=== PATIENT | female | born 1980 | race Caucasian/White ===

== ENCOUNTER 2017-06-23 19:20 | Emergency (ER) | payer OTHER ==
[2017-06-23 20:59] VITALS: BP 104/71
--- NOTE | 2017-06-23 21:19 | UC ---
Lower Extremity/Ankle HPI - HPI Summary HPI Summary: c/o gradual onset of left heel pain. Pt states pain radiates from left heel " up ankle" denies injury, infection or prior surgery. Pt states pain is worse with weight bearing - History of Current Complaint Chief Complaint: UCLowerExtremity Stated Complaint: LEFT HEEL PAIN Time Seen by Provider: 06/23/17 21:11 Hx Obtained From: Patient Hx Last Menstrual Period: 06/05/17 ?: No Onset/Duration: Gradual Onset, Lasting Days, Still Present Severity Initially: Mild Severity Currently: Moderate - with weight bearing Pain Intensity: 5 Aggravating Factor(s): Standing, Ambulation Alleviating Factor(s): Rest, Elevation Able to Bear Weight: Yes - Risk Factors Gout Risk Factors: Negative DVT Risk Factors: Negative Septic Arthritis Risk Factor: Negative - Allergies/Home Medications Allergies/Adverse Reactions: Allergies Allergy/AdvReac Type Severity Reaction Status Date / Time Copper Sulfate Allergy Blisters Verified 06/23/17 20:59 [From Copper Trace Metal Additive] Benzonatate [From Tessalon] AdvReac Intermediate FELT Verified 06/23/17 20:59 DISORIENTED AND FOGGY all metals Allergy Blisters Uncoded 06/23/17 20:59 Home Medications: Home Medications Ibuprofen TAB* [Advil TAB*] 600 mg PO Q6H PRN 06/23/17 [History Confirmed ] Oxycodone W/ Acetaminophen [Percocet 7.5-325 mg (NF)] 1 tab PO TID 06/23/17 [ History Confirmed 06/23/17] PMH/Surg Hx/FS Hx/Imm Hx Previously Healthy: Yes - Surgical History Surgical History: Yes Surgery Procedure, Year, and Place: 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 on 11/22/13. APPY. FIBROID SX. D&C - Family History Known Family History: Positive: Hypertension - Social History Occupation: Employed Full-time Lives: With Family Alcohol Use: Rare Substance Use Type: Excessive Caffeine Smoking Status (MU): Light Every Day Tobacco Smoker Type: Cigarettes Amount Used/How Often: 1/4 ppd Length of Time of Smoking/Using Tobacco: 20 YRS. Have You Smoked in the Last Year: Yes Household Exposure Type: Cigarettes - Immunization History Most Recent Influenza Vaccination: Not indicated Most Recent Tetanus Shot: Unknown Most Recent Pneumonia Vaccination: Not indicated Review of Systems Constitutional: Negative Skin: Negative Eyes: Negative ENT: Negative Respiratory: Negative Cardiovascular: Negative Gastrointestinal: Negative Genitourinary: Negative Motor: Negative Neurovascular: Negative Musculoskeletal: Arthralgia - left heel, Myalgia - left heel/ankle Neurological: Negative Psychological: Negative Is Patient Immunocompromised?: No All Other Systems Reviewed And Are Negative: Yes Physical Exam Triage Information Reviewed: Yes Appearance: Well-Appearing Vital Signs: Initial Vital Signs Temp 98.4 F 06/23/17 20:51 Pulse 85 06/23/17 20:51 Resp 16 06/23/17 20:51 BP 104/71 06/23/17 20:51 Pulse Ox 100 06/23/17 20:51 Vital Signs Reviewed: Yes Eye Exam: Normal ENT Exam: Normal Dental Exam: Normal Neck exam: Normal Respiratory: Positive: No respiratory distress Musculoskeletal Exam: Other Musculoskeletal: Positive: Other: - point tenderness left heel with palpation, that radiates with palpation Neurological Exam: Normal Psychological Exam: Normal Skin Exam: Normal Lower Extremity Course/Dx - Differential Dx/Diagnosis Differential Diagnosis/HQI/PQRI: Gout, Osteomyelitis, Other - heel spur Provider Diagnoses: heel spur left heel Discharge - Discharge Plan Condition: Stable Disposition: HOME Patient Education Materials: Heel Spur (ED) Referrals: Romaine Wilson MD [Primary Care Provider] - If Needed Shayan Palacio MD [Medical Doctor] - If Needed
== END 2017-06-23 21:30 | disposition home or self-care (01) ==
LOC: UCCORT 19:20
DX: M77.32 Calcaneal spur, left foot (principal); F17.210 Nicotine dependence, cigarettes, uncomplicated
CPT/HCPCS: 99212; G0463

== ENCOUNTER 2017-09-16 15:08 | Emergency (ER) | payer SELFPAY ==
[2017-09-16 15:52] VITALS: BP 123/71
--- NOTE | 2017-09-16 15:54 | UC ---
Skin Complaint HPI - HPI Summary HPI Summary: Pt c/o right heel pain and calloused area that began 1 year ago and has worsened over the last few weeks and is now painful to walk on. - History of Current Complaint Hx Obtained From: Patient Hx Last Menstrual Period: 08/30/17 ?: No Onset/Duration: Gradual Onset, Lasting Weeks, Worse Since - onset Skin Exposure Onset/Duration: Weeks Ago Timing: Constant Onset Severity: Mild Current Severity: Moderate Pain Intensity: 8 Location: Discrete, Foot (Right) Character: Pain, Raised Aggravating Factor(s): Touch Alleviating Factor(s): Unknown Associated Signs & Symptoms: Positive: Tenderness <Freida Michaud NP - Last Filed: 09/16/17 16:02> <Omayra Ruiz - Last Filed: 09/16/17 21:49> - History of Current Complaint Time Seen by Provider: 09/16/17 15:32 Stated Complaint: PAINFUL RIGHT HEEL/FOOT - Allergy/Home Medications Allergies/Adverse Reactions: Allergies Allergy/AdvReac Type Severity Reaction Status Date / Time benzonatate Allergy Numbness Verified 09/16/17 15:38 copper Allergy Blisters Verified 09/16/17 15:38 all metals Allergy Blisters Uncoded 06/23/17 20:59 Review of Systems Constitutional: Negative Skin: Other - thickened skin right heel Eyes: Negative ENT: Negative Respiratory: Negative Cardiovascular: Negative Gastrointestinal: Negative Genitourinary: Negative Motor: Negative Neurovascular: Negative Musculoskeletal: Negative Neurological: Negative Psychological: Negative Is Patient Immunocompromised?: No All Other Systems Reviewed And Are Negative: Yes <Freida Michaud NP - Last Filed: 09/16/17 16:02> PMH/Surg Hx/FS Hx/Imm Hx Previously Healthy: Yes - has hx squamous cell CA - Surgical History Surgical History: Yes Surgery Procedure, Year, and Place: 17 surgeries for squamous cell carcinoma, last surgery 10/2015 for rectal , vaginal, vulvar,. on 11/22/13. APPY. FIBROID SX. D&C - Family History Known Family History: Positive: Hypertension - Social History Occupation: Works From/At Home Lives: With Family Alcohol Use: Rare Substance Use Type: None Smoking Status (MU): Light Every Day Tobacco Smoker Type: Cigarettes Amount Used/How Often: 2 CIG A DAY Length of Time of Smoking/Using Tobacco: 20 YRS. Have You Smoked in the Last Year: Yes Household Exposure Type: Cigarettes - Immunization History Most Recent Influenza Vaccination: Not indicated Most Recent Tetanus Shot: Unknown Most Recent Pneumonia Vaccination: Not indicated <Freida Michaud NP - Last Filed: 09/16/17 16:02> Physical Exam Triage Information Reviewed: Yes Appearance: Well-Appearing Vital Signs: Initial Vital Signs Temp 98.0 F 09/16/17 15:35 Pulse 91 09/16/17 15:35 Resp 16 09/16/17 15:35 BP 123/71 09/16/17 15:35 Pulse Ox 98 09/16/17 15:35 Vital Signs Reviewed: Yes Eye Exam: Normal ENT: Positive: Hearing grossly normal Respiratory: Positive: No respiratory distress Musculoskeletal Exam: Normal Neurological Exam: Normal Psychological Exam: Normal Skin Exam: Other - quarter size wart right heel <Freida Michaud NP - Last Filed: 09/16/17 16:02> Vital Signs: Initial Vital Signs Temp 98.0 F 09/16/17 15:35 Pulse 91 09/16/17 15:35 Resp 16 09/16/17 15:35 BP 123/71 09/16/17 15:35 Pulse Ox 98 09/16/17 15:35 <Omayra Ruiz - Last Filed: 09/16/17 21:49> Course/Dx - Differential Diagnoses - Skin Complaint Differential Diagnoses: Other - plantars wart, squamous cell carcinoma - Diagnoses Provider Diagnoses: plantars wart <Freida Michaud NP - Last Filed: 09/16/17 16:02> Discharge - Sign-Out/Discharge Documenting (check all that apply): Discharge - Billing Disposition and Condition Condition: STABLE Disposition: HOME <Freida Michaud NP - Last Filed: 09/16/17 16:02> - Billing Disposition and Condition Condition: STABLE Disposition: HOME <Omayra Ruiz - Last Filed: 09/16/17 21:49> - Discharge Plan Condition: Stable Disposition: HOME Patient Education Materials: Plantar Wart (ED) Referrals: Catalino Licea DPM [Doctor of Podiatric Medicine] - Romaine Wilson MD [Primary Care Provider] - If Needed Shekhar Liu DPM [Doctor of Podiatric Medicine] - Jaime Watson DPM [Doctor of Podiatric Medicine] - Additional Instructions: Please follow up with your PCP or return to clinic as needed. Please note we have provided a short list of podiatry care providers for you to follow up with as needed.
== END 2017-09-16 16:03 | disposition home or self-care (01) ==
LOC: UCCORT 15:08
DX: B07.0 Plantar wart (principal); F17.210 Nicotine dependence, cigarettes, uncomplicated
CPT/HCPCS: 99211; G0463

== ENCOUNTER 2017-11-02 08:44 | Emergency (ER) | payer MEDICAID ==
[2017-11-02 09:07] VITALS: BP 117/75
--- NOTE | 2017-11-02 09:36 | ED ---
Throat Pain/Nasal Congestion - HPI Summary HPI Summary: 37 yr old female with runny nose, coughing, sinus pressure, post nasal drip. Onset about a week ago. Several ill exposures in the family with similar symptoms. THe patient has sinus pressure and discomfort as well. She states she had lazer surgery and excision of squamous cell genital, anal area last month. She states she has had a temp of 101 at home. Denies SOB. She has chest tightness with coughing episodes. She is cutting back on smoking. - History of Current Complaint Chief Complaint: UCRespiratory Time Seen by Provider: 11/02/17 09:13 - Allergies/Home Medications Allergies/Adverse Reactions: Allergies Allergy/AdvReac Type Severity Reaction Status Date / Time benzonatate Allergy Numbness Verified 11/02/17 09:08 copper Allergy Blisters Verified 11/02/17 09:08 all metals Allergy Blisters Uncoded 11/02/17 09:08 Home Medications: Home Medications Dextromethorphan/Benzocaine [Cepacol Sorethroat-Cough Kun] 1 each PO BEDTIME PRN 11/02/17 [History Confirmed 11/02/17] Phenylephrine/Dm/Acetaminop/GG [Mucinex Fast-Max Cold Flu] 1 liq PO Q6H PRN 12/13 [History Confirmed 11/02/17] PMH/Surg Hx/FS Hx/Imm Hx Endocrine/Hematology History: Denies: Hx Diabetes Cardiovascular History: Denies: Hx Congestive Heart Failure, Hx Hypertension, Hx Pacemaker/ICD History: Denies: Hx Dialysis, Hx Renal Disease Musculoskeletal History: Reports: Other Musculoskeletal History - joint pain current Sensory History: Reports: Hx Contacts or Glasses Denies: Hx Hearing Aid Opthamlomology History: Reports: Hx Contacts or Glasses Psychiatric History: Denies: Hx Panic Disorder - Cancer History Cancer Type, Location and Year: squamous cell - Surgical History Surgery Procedure, Year, and Place: 17 surgeries for squamous cell carcinoma, last surgery 10/2015 for rectal , vaginal, vulvar; plus surgery vaginal vulvo- rectal 09/27/17 [place];. on 11/22/13;. APPY and uterine tumor 2013. FIBROID SX. D&C Infectious Disease History: Yes Infectious Disease History: Reports: Hx Shingles - 2007 Denies: Hx Clostridium Difficile, Traveled Outside the [place] in Last 30 Days - Family History Known Family History: Positive: Hypertension - Social History Alcohol Use: Rare Substance Use Type: Reports: None Smoking Status (MU): Light Every Day Tobacco Smoker Type: Cigarettes Amount Used/How Often: 2 CIG A DAY Length of Time of Smoking/Using Tobacco: 20 YRS. Have You Smoked in the Last Year: Yes Review of Systems Positive: Fever, Chills Positive: Sore Throat, Nasal Discharge Positive: Cough All Other Systems Reviewed And Are Negative: Yes Physical Exam Triage Information Reviewed: Yes Vital Signs On Initial Exam: Initial Vitals Temp Pulse Resp BP Pulse Ox 98.8 F 85 18 117/75 96 11/02/17 08:55 11/02/17 08:55 11/02/17 08:55 11/02/17 08:55 11/02/17 08:55 Vital Signs Reviewed: Yes Appearance: Positive: Well-Appearing, No Pain Distress Skin: Positive: Warm, Skin Color Reflects Adequate Perfusion Head/Face: Positive: Normal Head/Face Inspection Eyes: Positive: EOMI ENT: Positive: Pharyngeal erythema, TMs normal, Sinus tenderness. Negative: Muffled voice, Hoarse voice Neck: Positive: Nontender Respiratory/Lung Sounds: Positive: Clear to Auscultation, Breath Sounds Present Cardiovascular: Positive: RRR. Negative: Murmur Abdomen Description: Positive: Nontender Musculoskeletal: Positive: Strength/ROM Intact Neurological: Positive: Sensory/Motor Intact, Alert, Oriented to Person Place, Time, CN Intact II-III Psychiatric: Positive: Normal - Nayely Coma Scale Best Eye Response: 4 - Spontaneous Best Motor Response: 6 - Obeys Commands Best Verbal Response: 5 - Oriented Coma Scale Total: 15 Diagnostics - Vital Signs Vital Signs Temp Pulse Resp BP Pulse Ox 11/02/17 08:55 98.8 F 85 18 117/75 96 - Laboratory Lab Statement: Any lab studies that have been ordered have been reviewed, and results considered in the medical decision making process. EENT Course/Dx - Course Course Of Treatment: 37 yr old with sinusitis, and asthmatic bronchitis. Rx with Augmentin. Pred, and albuterol. DChome FU with PMD. - Diagnoses Provider Diagnoses: Sinusitis, Acute asthmatic bronchitis Discharge - Sign-Out/Discharge Documenting (check all that apply): Discharge/Admit/Transfer - Discharge Plan Condition: Good Disposition: HOME Prescriptions: Albuterol HFA INHALER* [Ventolin HFA Inhaler*] 1 - 2 puff INH Q4H PRN #1 mdi PRN Reason: Cough Amoxicillin/Clavulanate TAB* [Augmentin TAB 875*] 875 mg PO BID #20 tab predniSONE TAB* [Deltasone 20 MG TAB*] 40 mg PO DAILY #8 tab Patient Education Materials: Sinusitis (ED), Bronchospasm (ED) Referrals: Romaine Wilson MD [Primary Care Provider] - 2 Days - Billing Disposition and Condition Condition: GOOD Disposition: Home
== END 2017-11-02 09:40 | disposition home or self-care (01) ==
LOC: UCCORT 08:44
DX: J32.9 Chronic sinusitis, unspecified (principal); J45.909 Unspecified asthma, uncomplicated; Z91.09 Other allergy status, other than to drugs and biological substances; Z88.8 Allergy status to other drugs, medicaments and biological substances
CPT/HCPCS: 99212; G0463

== ENCOUNTER 2018-06-25 12:20 | Emergency (ER) | payer OTHER ==
[2018-06-25 13:03] VITALS: BP 116/70
--- NOTE | 2018-06-25 13:27 | UC ---
Throat Pain/Nasal Nick HPI - History of Current Complaint Chief Complaint: UCGeneralIllness Stated Complaint: CONGESTION,COUGH Time Seen by Provider: 06/25/18 13:00 Hx Obtained From: Patient Hx Last Menstrual Period: 06/18/18 ?: No Onset/Duration: Gradual Onset, Lasting Weeks, Still Present - no improvement x weeks Severity: Mild Pain Intensity: 0 Pain Scale Used: 0-10 Numeric Associated Signs & Symptoms: Positive: Hoarseness, Sinus Discomfort Related History: Smoking - Allergies/Home Medications Allergies/Adverse Reactions: Allergies Allergy/AdvReac Type Severity Reaction Status Date / Time benzonatate Allergy Numbness Verified 06/25/18 12:59 copper Allergy Blisters Verified 06/25/18 12:59 all metals Allergy Blisters Uncoded 06/25/18 12:59 Home Medications: Home Medications D-Methorphan/PE/Acetaminophen [Daytime Cold-Flu Relief Sftgl] 1 each PO ONCE PRN 06/25/18 [History Confirmed 06/25/18] PMH/Surg Hx/FS Hx/Imm Hx Previously Healthy: Yes - Surgical History Surgical History: Yes Surgery Procedure, Year, and Place: 17 surgeries for squamous cell carcinoma, last surgery 10/2015 for rectal , vaginal, vulvar; plus surgery vaginal vulvo- rectal 09/27/17 [place];. on 11/22/13;. APPY and uterine tumor 2013. FIBROID SX. D&C - Family History Known Family History: Positive: Hypertension - Social History Alcohol Use: Rare Substance Use Type: None Smoking Status (MU): Light Every Day Tobacco Smoker Type: Cigarettes Amount Used/How Often: 2 CIG A DAY Length of Time of Smoking/Using Tobacco: 20 YRS. Have You Smoked in the Last Year: Yes Household Exposure Type: Cigarettes - Immunization History Most Recent Influenza Vaccination: Not indicated Most Recent Tetanus Shot: Unknown Most Recent Pneumonia Vaccination: Not indicated Review of Systems All Other Systems Reviewed And Are Negative: Yes Constitutional: Positive: Fever - 101.9 Monday evening, Fatigue ENT: Positive: Nasal Discharge, Sinus Congestion, Sinus Pain/Tenderness Respiratory: Positive: Cough Is Patient Immunocompromised?: No Physical Exam Triage Information Reviewed: Yes Appearance: No Pain Distress, Well-Nourished, Ill-Appearing - minimal Vital Signs: Initial Vital Signs Temp 97.1 F 01/28/19 13:01 Pulse 85 06/25/18 13:01 Resp 20 06/25/18 13:01 BP 116/70 06/25/18 13:01 Pulse Ox 99 06/25/18 13:01 Eyes: Positive: Conjunctiva Clear ENT: Positive: Hearing grossly normal, Pharyngeal erythema - mild b/l, no exudates, Nasal congestion, TMs normal, Sinus tenderness - b/l frontal/ max, Uvula midline. Negative: Tonsillar swelling, Tonsillar exudate Neck: Positive: Supple, Nontender, Enlarged Nodes @ - b/l R>L LAD Psychological Exam: Normal Skin Exam: Normal Throat Pain/Nasal Course/Dx - Course Course Of Treatment: sinusitis, abx given, OTCs for symptoms. FOllow up with primary within 2-3 days for re-eval - Differential Dx/Diagnosis Differential Diagnosis/HQI/PQRI: Pharyngitis, Sinusitis, URI Provider Diagnosis: Sinusitis Discharge - Sign-Out/Discharge Documenting (check all that apply): Patient Departure All imaging exams completed and their final reports reviewed: No Studies - Discharge Plan Condition: Good Disposition: HOME Prescriptions: Azithromyxin RONNIE (NF) [Z-Ronnie (Zithromax) 250 mg tabs #6] 2 tab PO .TODAY, THEN 1 DAILY #6 tab Patient Education Materials: Sinusitis (ED) Referrals: Romaine Wilson MD [Primary Care Provider] - Additional Instructions: - Increase fluid intake - Antibiotics as directed - Tylenol/ Motrin as needed for pain - Over the counter medication as needed for symptoms - Go to ER with shortness of breath, chest pain, increased pain, fever > 102. - Billing Disposition and Condition Condition: GOOD Disposition: Home
== END 2018-06-25 13:34 | disposition home or self-care (01) ==
LOC: UCCORT 12:20
DX: J32.9 Chronic sinusitis, unspecified (principal); F17.210 Nicotine dependence, cigarettes, uncomplicated; J39.2 Other diseases of pharynx; Z91.09 Other allergy status, other than to drugs and biological substances
CPT/HCPCS: 99212; G0463

== ENCOUNTER 2019-03-21 19:16 | Emergency (ER) | payer OTHER ==
[2019-03-21 19:37] VITALS: BP 119/83
--- NOTE | 2019-03-21 20:15 | UC ---
Upper Extremity HPI - HPI Summary HPI Summary: Pt presents with c/o sudden onset of right wrist pain, tingling and numbness in distal finger tips of fingers 2-4. Pt denies recent injury. 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 - History of Current Complaint Chief Complaint: UCUpperExtremity Stated Complaint: RIGHT HAND/WRIST PAIN Time Seen by Provider: 03/21/19 20:04 Hx Obtained From: Patient Hx Last Menstrual Period: due any day ?: No Onset/Duration: Gradual Onset, Lasting Days, Still Present Severity Initially: Mild Severity Currently: Moderate Pain Intensity: 6 Location Of Pain: Is Discrete @ - right wrist Character: Dull, Aching Aggravating Factor(s): Movement Alleviating Factor(s): Rest Associated Signs And Symptoms: Positive: Numbness/Tingling Related History: Dominant Hand Right - Risk Factors Non-Orthopedic Risk Factor: Negative DVT Risk Factors: Negative Septic Arthritis Risk Factor: Negative Compartment Syndrome Risk Factors: Pain - Allergies/Home Medications Allergies/Adverse Reactions: Allergies Allergy/AdvReac Type Severity Reaction Status Date / Time benzonatate Allergy Numbness Verified 06/25/18 12:59 all metals Allergy Blisters Uncoded 06/25/18 12:59 Home Medications: Home Medications Oxycodone HCl/Acetaminophen [Percocet] 1 tab PO TID 03/21/19 [History Confirmed 03/21/19] PMH/Surg Hx/FS Hx/Imm Hx Previously Healthy: Yes - Surgical History Surgical History: Yes Surgery Procedure, Year, and Place: 17 surgeries for squamous cell carcinoma, last surgery 10/2015 for rectal , vaginal, vulvar; plus surgery vaginal vulvo- rectal 09/27/17 [place];. on 11/22/13;. APPY and uterine tumor 2013. FIBROID SX. D&C - Family History Known Family History: Positive: Hypertension - Social History Occupation: Employed Full-time Lives: With Family Alcohol Use: None Substance Use Type: None Smoking Status (MU): Light Every Day Tobacco Smoker Type: Cigarettes Amount Used/How Often: 1/4 ppd Length of Time of Smoking/Using Tobacco: 20 YRS. Have You Smoked in the Last Year: Yes Household Exposure Type: Cigarettes - Immunization History Most Recent Influenza Vaccination: Not indicated Most Recent Tetanus Shot: Unknown Most Recent Pneumonia Vaccination: Not indicated Review of Systems All Other Systems Reviewed And Are Negative: Yes Constitutional: Positive: Negative Skin: Positive: Negative Eyes: Positive: Negative ENT: Positive: Negative Respiratory: Positive: Negative Cardiovascular: Positive: Negative Gastrointestinal: Positive: Negative Genitourinary: Positive: Negative Motor: Positive: Negative Neurovascular: Positive: Negative Musculoskeletal: Positive: Arthralgia - right wrist Neurological: Positive: Negative Psychological: Positive: Negative Is Patient Immunocompromised?: No Physical Exam Triage Information Reviewed: Yes Appearance: Well-Appearing Vital Signs: Initial Vital Signs Temp 99.6 F 03/21/19 19:30 Pulse 81 03/21/19 19:30 Resp 18 03/21/19 19:30 BP 119/83 03/21/19 19:30 Pulse Ox 99 03/21/19 19:30 Vital Signs Reviewed: Yes Eye Exam: Normal ENT: Positive: Hearing grossly normal Neck exam: Normal Respiratory: Positive: No respiratory distress Musculoskeletal: Positive: Other: - c/o pain with Phalen's test. Neurological Exam: Normal Psychological Exam: Normal Skin Exam: Normal Upper Extremity Course/Dx - Differential Dx/Diagnosis Differential Diagnosis/HQI/PQRI: Arthritis, Strain Provider Diagnosis: Right wrist pain Discharge ED - Sign-Out/Discharge Documenting (check all that apply): Patient Departure All imaging exams completed and their final reports reviewed: No Studies - Discharge Plan Condition: Stable Disposition: HOME Patient Education Materials: Arthralgia (ED) Referrals: Romaine Wilson MD [Primary Care Provider] - If Needed Cuong Patel MD [Medical Doctor] - As Soon As Possible Chiqui Mckeon MD [Medical Doctor] - As Soon As Possible - Billing Disposition and Condition Condition: STABLE Disposition: Home
== END 2019-03-21 20:29 | disposition home or self-care (01) ==
LOC: UCCORT 19:16
DX: M25.531 Pain in right wrist (principal); R20.0 Anesthesia of skin; F17.210 Nicotine dependence, cigarettes, uncomplicated; Z88.8 Allergy status to other drugs, medicaments and biological substances; Z91.09 Other allergy status, other than to drugs and biological substances
CPT/HCPCS: 99211; G0463

== ENCOUNTER 2019-06-25 13:22 | Emergency (ER) | payer OTHER ==
--- OUTSIDE RECORDS SUMMARY | 2019-06-25 14:03 | XMS REPORT | Summary of Care ---
:1980 Author Organization [facility] Address [address] [place] [address] Care Team Providers Name Role Phone Romaine Wilson MD Primary Care Provider Encounter Details Date Type Department Care Team Description 05/13/2019 Hospital Encounter [facility] Pathology Vulvar dysplasia; Laboratory and PSC at Pre-op testing [facility] [place] [address] Allergies No Known Allergiesdocumented as of this encounter (statuses as of 05/14/2019) Medications Medication Sig Dispensed Refills Start Date End Date Status ibuprofen Take 600 mg by 0 Active (ADVIL,MOTRIN) 600 MG mouth every 6 tablet (six) hours as needed for Pain. 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 documented as of this encounter (statuses as of 05/14/2019) Social History Tobacco Use Types Packs/Day Years Used Date Current Every Day Smoker 0.25 21 Smokeless Tobacco: Never Used Alcohol Use Drinks/Week oz/Week Comments No Sex Assigned at Date Recorded Not on file Job Start Date Occupation Industry Not on file Not on file Not on file Travel History Travel Start Travel End No recent travel history available. documented as of this encounter Last Filed Vital Signs Not on filedocumented in this encounter Plan of Treatment Date Type Specialty Care Team Description 06/24/2019 Office Visit Obstetrics and Gynecology Teresita Brooke MD [address] [facility] [address] [place] [address] [phone] Health Maintenance Due Date Last Done Comments MMR Vaccines (1 of 1 - Standard 1980 series) Varicella Vaccines (1 of 2 - 1980 2-dose childhood series) Pneumococcal Vaccine: Pediatrics 1985 (0 to 5 Years) and At-Risk Patients (6 to 64 Years) (1 of 1 - PPSV23) DTaP,Tdap,and Td Vaccines (1 - 1986 Tdap) HIV Screening 1992 Influenza Vaccine 02/26/2019 Cervical Cancer Screening 5 years 06/11/2019 06/11/2014 Pneumococcal Vaccine: 65+ Years (1 2044 of 2 - PCV13) HIB Vaccines Aged Out No longer eligible based on patient's age to complete this topic Hepatitis A Vaccines Aged Out No longer eligible based on patient's age to complete this topic Hepatitis B Vaccines Aged Out No longer eligible based on patient's age to complete this topic IPV Vaccines Aged Out No longer eligible based on patient's age to complete this topic documented as of this encounter Procedures Procedure Name Priority Date/Time Associated Comments Diagnosis CBC AND DIFFERENTIAL Routine 05/13/2019 10:08 Vulvar dysplasia Results for this AM EST Pre-op testing procedure are in the results section. BASIC METABOLIC PANEL Routine 05/13/2019 10:08 Vulvar dysplasia Results for this AM EST Pre-op testing procedure are in the results section. documented in this encounter Results CBC and Differential (05/13/2019 10:08 AM EST) White Blood Cell 9.2 4 - 10 [facility] 10*3/uL [facility] Pathology Red Blood Cell 5.00 4.1 - 5.3 [facility] 10*6/uL [facility]ology Hemoglobin 15.0 11.5 - 15.5 [facility] g/dL [facility] Clin Pathology Hematocrit 43.8 36 - 45 % [facility] Clin Pathology Mean Cell Volume 87.6 80 - 96 fL [facility] Clin Pathology Mean Cell Hemoglobin 30.0 27 - 33 pg [facility] Clin Pathology Mean Cell Hgb Conc 34.2 32.0 - 36.0 [facility] g/dL Univ Clin Pathology Red Cell Dist Width 12.6 11.5 - 14.5 % [facility] Clin Pathology Platelet Count 269 150 - 400 [facility] 10*3/uL [facility] Clin Pathology Differential Type Automated Diff [facility] Clin Pathology Neutrophil 64 % [facility] Clin Pathology Lymphocyte 27 % [facility] Clin Pathology Monocyte 7 % [facility] Clin Pathology Eosinophil 1 % [facility] Univ Clin Pathology Basophil 1 % [facility] Clin Pathology Abs Neutrophil 6.02 1.8 - 7.0 [facility] 10*3/uL Univ Clin Pathology Abs Lymphocyte 2.48 1.2 - 4.0 [facility] 10*3/uL [facility] Clin Pathology Abs Monocyte 0.62 0 - 0.8 [facility] 10*3/uL [facility] Clin Pathology Abs Eosinophil 0.05 0 - 0.5 [facility] 10*3/uL [facility] Clin Pathology Abs Basophil 0.04 0 - 0.2 [facility] 10*3/uL Univ Clin Pathology Nucleated Red Blood 0 0 - 0 [facility] Cells /100{WBCs} [facility] Clin Pathology Specimen EDTA Whole Blood Performing Organization Address City/State/[place] Phone Number [facility] PATH[facility] [address] [place] [address] [facility] Clin [address] [place] [address] Pathology Basic Metabolic Panel (05/13/2019 10:08 AM EST) Bicarbonate 23 22 - 29 mmol/L [facility] Clin Pathology Chloride 104 98 - 107 mmol/L [facility] Clin Pathology Creatinine 0.78 0.50 - 0.90 [facility] mg/dL Univ Clin Pathology Glucose 91 70 - 140 mg/dL [facility] Clin Pathology Potassium 3.9 3.4 - 5.1 mmol/L [facility] Clin Pathology Sodium 138 136 - 145 mmol/L [facility] Clin Pathology Blood Urea Nitrogen 10 6 - 20 mg/dL [facility] Clin Pathology Anion Gap 11 8 - 15 mmol/L [facility] Clin Pathology Osmolality, Marcello 284 275 - 300 [facility] mosm/kg [facility] Clin Pathology BUN/Cre Ratio 13 [facility] Clin Pathology Calcium 9.4 8.6 - 10.0 mg/dL [facility] Clin Pathology GFR Non >90 >60 [facility] Welsh 2009 CDK-EPI mL/min/1.73m2 [facility]ology GFR >90 >60 [facility] 2009 CKD-EPI mL/min/1.73m2 [facility] Pathology Specimen Plasma Performing Organization Address City/State/[facility] Phone Number [facility] [address] [place] [address] [facility] Clin [address] [place] [address] Pathology documented in this encounter Visit Diagnoses Diagnosis Vulvar dysplasia Other specified noninflammatory disorder of vulva and perineum Pre-op testing Preoperative examination, unspecified documented in this encounter
--- OUTSIDE RECORDS SUMMARY | 2019-06-25 14:03 | XMS REPORT | Summary of Care ---
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 Aston Byrd MD Pre-op testing; [address] JAKY II (vulvar intraepithelial neoplasia II) [address] [place] [phone] Allergies No Known Allergiesdocumented as of this [...] of this encounter Last Filed Vital Signs Vital Sign Reading Time Taken Comments Blood Pressure 138/88 05/13/2019 9:39 AM EST Pulse - - Temperature - - Respiratory Rate - - Oxygen Saturation - - Inhaled Oxygen Concentration - - Weight 100.7 kg (222 lb) 05/13/2019 9:39 AM EST Height 170.2 cm (5' 7") 05/13/2019 9:39 AM EST Body Mass Index 34.77 05/13/2019 9:39 AM EST documented in this encounter Progress Notes Teresita Brooke MD - 05/13/2019 9:30 AM EST CC: followup visit HPI: 39 y.o. here for a follow up visit, states she feels the lesion is back. She ahs itching and feeling of a "bump" on her perineum, similar to other recurrences of the vulvar dysplasia. She otherwise feels well overall, no pain/ nausea/ vomiting/ bleeding/ bloating / fever/ chills. 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 Past Surgical History: Procedure Laterality Date APPENDECTOMY 01/03/2014 SECTION 11/22/13 twins CYSTECTOMY Left 2007 left ovary DILATION AND CURETTAGE OF UTERUS extensive genital lesions 02/17/14 genital condylomata at the clitoris,right labia and perianal area fibroid removed 01/03/2014 same time as appendectomy ORAL PROCEDURES teeth removed, gum tumor removed 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 No BMI 34.77 kg/m Skin: clear Affect/Neuro: alert, awake, oriented HEENT: MMM, pharynx clear Neck: supple without thyromegaly, no cervical or supraclavicular adenopathy Lungs: CTAB, no wheezing Back: no CVAT Breasts: no skin changes, nontender and without any palpable masses, no axillary adenopathy Heart: RRR, no murmur Abdomen: soft, nontender, no palpable organomegaly or mass, no hernias Groin: no palpable adenopathy Pelvic: visible areas of involvement of the periclitoral, right labia and posterir fourchette. Urethral meatus, urethra, and bladder are normal. Vaginal mucosa atrophic with no lesions. Cervix , uterus, adnexae wnl no masses /nodularity Rectovaginal exam was confirmatory, no masses/ nodularity Extremities without edema. Procedure Note: consent obtained. Area infiltrated with lidocaine, aneasthesia checked, a punch biopsy obtained at clitoris and right and posterior fourchette position. Specimen sent to pathology. Instruments withdrawn, pressure applied at biopsy site and bleeding controlled with silver nitrate. Good hemostasis obtained. Pt tolerated procedure well, stable condition. A/P : f/u biopsies I recommended laser vaporization of the vulva. The alternative of partial vulvectomy was also discussed. We reviewed risks including but not limited to pain and scarring. The risk of recurrence and need for close followup was also discussed. All questions were answered. Laser vaporization will be scheduled. Teresita Brooke M.D. Clinical Insemination Worker Gynecologic Oncology documented in this encounter Plan of Treatment Date Type Specialty Care Team Description 06/24/2019 Office Visit Obstetrics and Gynecology Teresita Brooke MD [address] [facility] [address] [place] [address] [phone] Name Type Priority Associated Diagnoses Order Schedule Surgical Pathology Pathology and Routine Vulvar dysplasia Ordered: Exam ( Only) Cytology JAKY II (vulvar 05/13/2019 intraepithelial neoplasia II) Health Maintenance Due Date Last Done Comments [...] this topic documented as of this encounter Results Basic Metabolic Panel (05/13/2019 10:08 AM EST) Bicarbonate 23 22 - 29 mmol/L [facility] Clin Pathology Chloride 104 98 - 107 mmol/L [facility] Pathology Creatinine 0.78 0.50 - 0.90 [facility] mg/dL Univ Clin Pathology Glucose 91 70 - 140 mg/dL [facility] Pathology Potassium 3.9 3.4 - 5.1 mmol/L [facility] Pathology Sodium 138 136 - 145 mmol/L [facility] Pathology Blood Urea Nitrogen 10 6 - 20 mg/dL [facility] Pathology Anion Gap 11 8 - 15 mmol/L [facility] Pathology Osmolality, Marcello 284 275 - 300 [facility] mosm/kg [facility] Clin Pathology BUN/Cre Ratio 13 [facility] Pathology Calcium 9.4 8.6 - 10.0 mg/dL [facility] Pathology GFR Non >90 >60 [facility] Yemeni 2009 CDK-EPI mL/min/1.73m2 [facility] Pathology GFR >90 >60 [facility] 2009 CKD-EPI mL/min/1.73m2 [facility] Pathology Specimen Plasma Performing Organization Address City/State/Zipcode Phone Number [facility] PATH[facility] [address] [place] [address] [facility] Clin [address] [place] [address] Pathology CBC and Differential (05/13/2019 10:08 AM EST) White Blood Cell 9.2 4 - 10 [facility] 10*3/uL [facility] Clin Pathology Red Blood Cell 5.00 4.1 - 5.3 [facility] 10*6/uL [facility] Pathology Hemoglobin 15.0 11.5 - 15.5 [facility] g/dL [facility] Pathology Hematocrit 43.8 36 - 45 % [facility] Pathology Mean Cell Volume 87.6 80 - 96 fL [facility] Clin Pathology Mean Cell Hemoglobin 30.0 27 - 33 pg [facility] Clin Pathology Mean Cell Hgb Conc 34.2 32.0 - 36.0 [facility] g/dL [facility] Clin Pathology Red Cell Dist Width 12.6 11.5 - 14.5 % [facility] Clin Pathology Platelet Count 269 150 - 400 [facility] 10*3/uL [facility] Clin Pathology Differential Type Automated Diff [facility] Pathology Neutrophil 64 % [facility] Pathology Lymphocyte 27 % [facility] Pathology Monocyte 7 % [facility] Pathology Eosinophil 1 % [facility] Pathology Basophil 1 % [facility] Pathology Abs Neutrophil 6.02 1.8 - 7.0 [facility] 10*3/uL [facility] Pathology Abs Lymphocyte 2.48 1.2 - 4.0 [facility] 10*3/uL [facility] Pathology Abs Monocyte 0.62 0 - 0.8 [facility] 10*3/uL [facility] Pathology Abs Eosinophil 0.05 0 - 0.5 [facility] 10*3/uL [facility] Pathology Abs Basophil 0.04 0 - 0.2 [facility] 10*3/uL [facility] Pathology Nucleated Red Blood 0 0 - 0 [facility] Cells /100{WBCs} [facility] Pathology Specimen EDTA Whole Blood Performing Organization Address City/State/Zipcode Phone Number [facility] [address] [place] [address] [phone] [facility] [address] [place] [address] Pathology documented in this encounter Visit Diagnoses Diagnosis Vulvar dysplasia - Primary Other specified noninflammatory disorder of vulva and perineum Pre-op testing Preoperative examination, unspecified 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
--- OUTSIDE RECORDS SUMMARY | 2019-06-25 14:03 | XMS REPORT | Continuity of Care Document ---
:1980 Author Organization 0001 - [employer] Address [address] [place] [address] Phone Care Team Providers Name Role Phone MAIKEL RUTLEDGE MD Unavailable Unavailable Allergies, Adverse Reactions, Alerts Substance Reaction Status silver Active WARNIN allergy(ies) could not be collected because the type is not supported. Please contact [facility] for further details. Medications Medication Instructions Dosage Effective Dates Status Comments (start - stop) Percocet 7.5 take 1 tablet by 1 tablet - Active Reference #: mg-325 mg tablet oral route every [id number] 8 hours as needed Wellbutrin XL take 1 tablet by 150 MG - Active 150 mg 24 hr oral route every tablet, extended day release docusate sodium take 1 capsule by 100 MG - Active 100 mg capsule oral route every 2 days at bedtime as needed as needed cetirizine 10 mg take 1 tablet by 10 MG - Active tablet oral route every day ibuprofen 200 mg take 3 tablet by 600 MG - Active tablet oral route every 6 hours as needed with food Percocet 7.5 take 1 tablet by 1 tablet - No Longer Reference # : mg-325 mg tablet oral route every Active [id number] 8 hours as needed Problems Condition Effective Dates (start - stop) Clinical Status Chronic pain due to neoplasm Malignant neoplasm of corpus uteri, unspecified Smoking Nicotine dependence, cigarettes, - uncomplicated Squamous cell carcinoma of vulva Routine medical exam Body mass index (BMI) 34.0-34.9, adult - JAKY III (vulvar intraepithelial neoplasia III) Encntr for recovery coordinator exam (general) (routine) w/o abn findings JAKY III (vulvar intraepithelial neoplasia III) Adult BMI 34.0-34.9 kg/sq m Ot noninflammatory disorders of vulva - and perineum Malignant neoplasm of corpus uteri, unspecified Malignant neoplasm of corpus uteri, unspecified Upper airway cough syndrome Tobacco use - JAKY III (vulvar intraepithelial neoplasia III) Scar of upper arm Tobacco use - Chronic pain due to neoplasm 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 Oth noninflammatory disorders of vulva - and perineum Encntr for recovery coordinator exam (general) (routine) w abnormal findings JAKY III (vulvar intraepithelial neoplasia III) Irregular menses Family history of breast cancer screening mammogram for malignant neoplasm of breast Encntr screen for infections w sexl - mode of transmiss Encounter for screening for oth - infec/parastc diseases Body mass index (BMI) 33.0-33.9, adult Abnormal uterine bleeding (AUB) Chronic narcotic dependence Chronic pain due to neoplasm Encntr for general adult medical exam w/o abnormal findings Non morbid obesity due to excess calories Callus of foot Body mass index (BMI) 33.0-33.9, adult - Non morbid obesity due to excess calories Chronic narcotic dependence Chronic pain due to neoplasm Malignant neoplasm of vulva, unspecified JAKY III (vulvar intraepithelial neoplasia III) Stress Neoplasm of uncertain behavior of skin - Hypertrophic disorder of the skin, - unspecified JAKY III (vulvar intraepithelial neoplasia III) Encntr for general adult medical exam - w/o abnormal findings Intrauterine synechiae - Intrauterine synechiae Malignant neoplasm of vulva, unspecified Routine medical exam Cigarette nicotine dependence without complication Needs flu shot Chronic pain due to neoplasm Malignant neoplasm of corpus uteri, - unspecified Squamous cell cancer of vulva Sensory hearing loss Abdominal pain Pain, abdominal, left upper quadrant - JAKY 3 Sympto associated w/female genital organs NOS Abnormal pap smear of the vagina Uterine adhesion Squamous cell cancer of vulva Tenderness, abdominal, unspecified - site , twin, antepartum , twin, antepartum Supervision, , high-risk NEC - Twin gestation , twin, antepartum - Disorder, tobacco use - Procedures Procedure Date Procedure Unknown Results Test Name Date and Time Measure Units Reference Range Abnormal Flag Status Comments Unknown Encounters Encounter Practice Location Reason(s) Diagnoses Date Provider Providers Description For Visit Copied on Encounter 0001 - [facility] Primary Apr- [facility] [employer], Care 0-201 MAIKEL. 33 [address], [facility], [place], [place], , [place], [address], [place] [address]. tel: tel:+ [phone] 0001 - [facility] Primary Mar- [facility], Care 2- MAIKEL. 33 [address], [place], [facility], [place], [place], , [place], [address], [place] [address]. tel: tel:+ [phone] 0001 - [facility] Primary Jan-3 [facility] Inc, Care 0-201 MAIKEL. 33 [address], [place], [facility], [place], [place], [address], [place] [address]. tel: tel:+ [phone] 0001 [facility] Primary Chronic pain due [facility], Care to MAIKEL. 33 33-[address] neoplasmMalignant [address] neoplasm of corpus [address], [place], uteri, [facility], [place], [place], [place], [address], [place] dependence, [address]. tel:+ cigarettes, tel:[phone] uncomplicated [phone] - S Primary Nov-0 [facility] [employer], Care 5- MAIKEL. [address], [address], [facility], [place], [place], [place], [address], [place] [address]. tel: tel:+ [phone] 0001 - S Primary Squamous cell Apr-[address] [employer], Care carcinoma of MAIKEL. [address] vulvaRoutine [address], Street, mass index (BMI) [facility] 34.0-34.9, [place], , [place], [address], [place] [address]. tel: tel:+ [phone] [address] [place] [address] Jose [place] JAKY III (vulvar Mar- [facility] [employer], Gynecology intraepithelial CHERYLE. neoplasia III) 9 4417 [facility], [place], [place], [place], [address], [place], [address]. tel: tel: [phone] [address] [place] [address] Jose Juan Encntr for recovery coordinator Ray-0 [employer], Gynecology exam (general) CHERYLE. 33 (routine) w/o abn 9 [address]17 [place] findingsVIN III [facility], (vulvar [place], [place], neoplasia [place], [address], [place] III)[place], [address]. tel:+ 34.0-34.9 kg/sq tel: [phone] [facility] [phone] noninflammatory disorders of vulva and perineum 0001 - S Primary Nov- [employer], Care MAIKEL. [address], [address], [facility], [place], [place], [place], [address], [place] [address]. tel: tel:+ [phone] 0001 - S Primary Malignant neoplasm Oct- [employer], Care of corpus uteri, MAIKEL. [address] unspecified [address], [address], [facility], [place], [place], [address], [place] [address]. tel: tel: [phone] 0001 - S Primary Malignant neoplasm Damien- [facility], Care of corpus uteri, 3 MAIKEL. [address] unspecifiedUpper [address], Street, [facility], [place], [place], [place], [address], [place] [address]. tel: tel: [phone] 0001 - S Primary JAKY III (vulvar Mar-0 [facility], Care intraepithelial MAIKEL. [address] neoplasia III)Scar [address], [address], [facility], [place], [place], [place], [address], [place] [address]. tel: tel: [phone] 0001 - S Primary Chronic pain due Mar-0 S Inc, Care to neoplasm [address] [place], [place], [address], [place] tel: [phone] 0001 - Lab - [facility] JAKY III (vulvar Feb-2 [employer] Inc, intraepithelial CHERYLE. 3357 neoplasia III) 8 4417 [facility], [place], [place], [place], [address], [place], [address]. tel: tel: [phone] 0001 - [facility] Jose Juan Squamous cell Feb-2 [facility] Inc, Gynecology carcinoma of CHERYLE. 3357 vulvaOth 8 [address]17 [place] noninflammatory [facility], disorders of vulva [facility] and [place], [place], [place], [address], [place], [address]. tel: tel: [phone] 0001 - [facility] Jose Juan Encntr for recovery coordinator Ray- [facility] [employer], Gynecology exam (general) 3 CHERYLE. 3357 (routine) w 8 [address], findingsVIN III [facility] (vulvar [place], [place], intraepithelial [place], [address], [place], [address]. tel: III)Irregular tel: [phone] mensesFamily [phone] history of breast cancerscreening mammogram for malignant neoplasm of breastEncntr screen for infections w sexl mode of transmissEncounter for screening for oth infec/parastc diseasesBody mass index (BMI) 33.0-33.9, adult 0001 - [facility] Jose Juan Abnormal uterine [facility], Gynecology bleeding (AUB) CHERYLE. [address], [place], [place], [place], [address], [place], [address]. tel: tel: [phone] [address] [place] [address] Primary Chronic narcotic Trevor-2 [facility], Care dependenceChronic 6- MAIKEL. 33 [address] pain due to [address], [address], [facility], [place], [place], , [place], [address], [place] [address]. tel: tel: [phone] [address] [place] [address] Primary Encntr for general Damien-0 [facility], Care adult medical exam 8 MAIKEL. 33 33-57 [address] w/o abnormal 7 [address] findingsNon mor[address], Street, obesity due to [facility], [place] excess [place], [place], [place], [address], [place] footBody mass [address]. tel: index (BMI) tel: [phone] 33.0-33.9, adult [phone] [address] [place] [address] Primary Non morbid obesity May-2 [employer] Inc, Care due to excess - MAIKEL. 33 33-57 [address] caloriesChronic [address], [address], dependence [facility], [place], [place], [place], [address], [place] [address]. tel: tel: [phone] 0001 [facility] Primary Chronic pain due Apr-2 [facility] [facility], Care to 8-201 MAIKEL. 33 [address] neoplasmMalignant 6 [address] neoplasm of vulva, [address], Street, unspecifiedVIN III [facility] (vulvar [place], [place], [place], [address], [place] neoplasia [address]. tel: III)Stress tel: [phone] 0001 [facility] Jose Juan Neoplasm of Mar-2 [facility] Inc, Gynecology uncertain behavior 4-201 CHERYLE. 33-57 of 6 4417 [address] skinHypertrophic [facility], disorder of the [facility] skin, [facility] [place], [place], [place], [address], [place], [address]. tel: tel: [phone] [address] [place] [address] [place] JAKY III (vulvar Feb-2 [employer] Inc, Gynecology intraepithelial 4-201 CHERYLE. 3357 neoplasia III) 6 4417 [facility], [place], [place], [place], [address], [place], [address]. tel: tel: [phone] 0001 [facility] Primary Encntr for general Oct-3 [facility] Inc, Care adult medical exam 0-201 MAIKEL. 33 33[address] w/o abnormal [address]i [address], Street, ne synechiae [facility], [place], [place], [place], [address], [place] [address]. tel: tel: [phone] [address] [place] [address] Primary Intrauterine Oct-2 [facility] Inc, Care synechiaeMalignant 3-201 MAIKEL. 33 33-57 [address] neoplasm of vulva, [address], Street, medical [facility], [place] examCigarette [place], [place], [place], [address], [place] dependence without [address]. tel: complicationNeeds tel: [phone] flu shotChronic [id number] pain due to neoplasmMalignant neoplasm of corpus uteri, unspecified 0001 [facility] Primary Squamous cell Nov- [facility] Inc, Care cancer of MAIKEL. [address] vulvaSensory [address] loss [address], Street, [facility], [place], [place], , [place], [address], [place] [address]. tel: tel: [phone] 0001 [facility] Primary Abdominal Apr- [facility], Care painPain, MAIKEL. [address] abdominal, left [address] quadrant [address], Street, [facility], [place], [place], , [place], [address], [place] [address]. tel: tel: [phone] [address] [place] [address] Jose [place] JAKY 3Sympto Jul- [facility], Gynecology associated CHERYLE. w/female genital 5 4417 [address] organs NOS [address] [facility], [place], [place], [place], [address], [place], [address]. tel: tel: [phone] 0001 [facility] Primary Abnormal pap smear [facility], Care of the MAIKEL. [address] vaginaUterine [address], [address], cell cancer of [facility] vulvaTendernessCedarville, [place], [place], [place], [address], [place] unspecified site [address]. tel: tel: [phone] [address] [place] [address] Women's , twin, Damien- [facility], Health antepartum TESTING. 33-57 Center 4 [facility] [address], [place], [place], [place], [address], [place] [address]. tel:+ [phone] 2019 - [facility] Women's , twin, Damien- S Inc, Health antepartum 2-201 TESTING. [facility] [address], [place], [address], [place] [address]. tel: [phone] 2019 [facility] Women's Supervision, Damien-0 [facility], Health , 5-[address] [place] [address] high-risk NEC [address], [place], [address], [place] [address]. tel: [phone] 2019 - [facility] Women's Twin September- [facility], Health gestationPregnancy 9-[address] [place] [address] , twin, antepartum [address], [place], [address], [place] [address]. tel: [phone] 2019 [facility] Primary Apr-0 [facility], Care 2-201 NURSE. . [place] 0 [place], [address], [place] tel: [phone] 2019 [facility] Primary Disorder, tobacco HOLLY [facility], Care use 6-[address] [place] [address] 7 [facility] [address] [place] [place], [place], [place], [address]. [address], [place] tel:602 tel: [phone] Family History Family Member Diagnosis Age At Onset Brother Maternal grandmother Cancer, breast Mother Cancer, breast Maternal grandmother Cancer, cervical (Cause Of ) 32 Brother Cardiomyopathy (Cause Of ) 31 Maternal grandmother Family history of Cancer, ovarian Mother Hypertension Immunizations Vaccine Date Status Comments Influenza, injectable, administered Source: Other Provider quadrivalent, preservative free, split virus Influenza, injectable, administered Source: Other Provider quadrivalent, preservative free, split virus Fluarix, Flulaval, or Flluzone administered Note: pt requested both Quad vaccines in left arm ; Source: New Immunization Record TDAP (Boostrix or Adacel) administered Source: New Immunization Record MMR administered Note: Abstracted:08/28/2009 ; Source: New Immunization Record Td (7 yrs and older) administered Note: Abstracted:08/28/2009 ; Source: New Immunization Record OPV administered Note: Abstracted:08/28/2009 ; Source: New Immunization Record DTP administered Note: Abstracted:08/28/2009 ; Source: New Immunization Record OPV administered Note: Abstracted:08/28/2009 ; Source: New Immunization Record DTP administered Note: Abstracted:08/28/2009 ; Source: New Immunization Record MMR administered Note: Abstracted:08/28/2009 ; Source: New Immunization Record DTP administered Note: Abstracted:08/28/2009 ; Source: New Immunization Record OPV administered Note: Abstracted:08/28/2009 ; Source: New Immunization Record DTP administered Note: Abstracted:08/28/2009 ; Source: New Immunization Record OPV administered Note: Abstracted:08/28/2009 ; Source: New Immunization Record DTP administered Note: Abstracted:08/28/2009 ; Source: New Immunization Record Payers Payer name Insurance type Covered libertarian ID Authorization(s) Francesco [id number] [facility] [id number] [facility] [id number] Social History Type Description Quantity Date Captured Comments Alcohol Use Details Unknown Caffeine Use Details Unknown Tobacco Use Status Smoking Status Unknown Vital Signs Date / Height Weight BMI Pulse Blood Temperature Respiratory Body Head BMI Time: Rate Pressure Rate Surface Circumference percentile Area Unknown Chief Complaint And Reason For Visit No information Reason For Referral Reason For Referral Unknown Plan Of Care Date Type Action Status Referral Referred To: ordered Jonathan Ordered: Referrals: Jonathan. Location: [facility] Referral Ordered: ordered Pathology (tissue specimen) Referral Ordered: ordered Mammogram, Screening, Bilateral, 2 Views Each Referral Referred To: ordered Keila Ordered: Referrals: Keila. Location: [facility]. Evaluate and treat Referral Referred To: ordered ALTA MURO MD [address] [place], [address] [phone] Ordered: Referrals: ALTA MURO MD. Location: [facility] Referral Referred To: ordered QI MENDEZ MD [address] [place], [address] [phone] Ordered: Referrals: QI MENDEZ MD. Location: [facility] Referral Referred To: ordered CHERYLE REMY [address] [place], [phone] Ordered: CHERYLE REMY Gynecology. Consult and treat. Appointment date/timeframe: 08/19/2014 Referral Ordered: ordered . Hematology/Oncology. Consult and treat. Appointment JERROD CRAWFORD CANCELLED Appointment JERROD CRAWFORD CANCELLED Date Type Problem Goal Intervention Status Start Date Unknown History Of Present Illness Encounter Date Complaint History Of Present Illness No information Functional Status Encounter Date Functional Assessment Cognitive Assessment Unknown Medications Administered Medication Instructions Dosage Effective Dates (start - stop) Status Comments Drug Treatment Unknown Instructions Date Instruction Additional Information Follow up with BEHAVIORAL HEALTH CARE COORDINATOR/Oncology as Related to Chronic pain due to scheduledContinue with current medical neoplasm regimen and activity as tolerated Tobacco, alcohol and drug safety Related to Routine medical exam reviewedTherapeutic life style modications reviewedLabs reviewed Follow up with Gynecology as Related to Squamous cell carcinoma scheduledPain medication adjustment set of vulva up09/24/18, Percocet will be increased to 10/325mg q8hrs x 2 weeks (ending on 10/07/18)10/08/18, Percocet will be decreased to baseline dosage of 7.5/325mg [id number] has demonstrated understand of plan and medications have been arranged as such in the medication module.Follow up in 3months Call biopsy result Related to JAKY III (vulvar intraepithelial neoplasia III) RTO repeat vulvar biopsy. Follow-up Related to JAKY III (vulvar with GI consultation as scheduled to intraepithelial neoplasia III) rule out anal condyloma. Fairly controlledContinue with current Related to Malignant neoplasm of medication regimenLifestyle corpus uteri, unspecified modifications reviewedFollow up in 6 months or sooner if neededFlu shot strongly encouraged. Fluticasone orderedContinue with Related to Upper airway cough LoratadineOTC Honey lemon santhosh tea to syndrome be used regularlyPlain tussin (robitussin) can be used to break the mucus up into smaller pieces.FOllow up as scheduled Pain medication dosage adjusted.Follow Related to Malignant neoplasm of up with Oncology as scheduled corpus uteri, unspecified Continue observation Activity as Related to Scar of upper arm tolerated encouraged Pain medication dosage decreasedFollow Related to JAKY III (vulvar up with specialist in [place] as intraepithelial neoplasia III) scheduled. Call biopsy result, RTO 6 months for Related to Squamous cell carcinoma follow-up screening or when necessary of vulva Referral to genetics for BRCA screening Related to Family history of breast cancer mammo, consider [place] or Depo-Provera Related to Encntr for recovery coordinator exam versus IUD for contraception, routine (general) (routine) w abnormal annual in 1 year findings RTO for vulvar biopsies Related to JAKY III (vulvar intraepithelial neoplasia III) Consider cyclic progesterone Related to Irregular menses Continue Percocet dosage at 7.5/325 mg Related to Chronic pain due to q8hrs current.Gradual decrease neoplasm discussed and encouragedGoal date 05/29/17 Improvement and gradual decrease Related to Chronic narcotic discussed and recommendedThe goal is to dependence gradually decrease the medication to discontinuation by new years Salicylic acid and OTC remedies Related to Callus of foot reviewed with patientActivity as tolerated encouragedFollow up as needed. Labs orderedTherapeutic lifestyle Related to Non morbid obesity due modfiications reviewedFollow up in 3 to excess calories months Tobacco, alcohol and drug safety Related to Encntr for general reviewedTherapeutic life style adult medical exam w/o abnormal modications reviewedLabs findings ordered/reviewed Medications not recommended at this Related to Stress time.Card for BLOCK OUT MACHINE OPERATOR for counselling given and recommended.Patient opted to call when able to discuss. Follow up with Oncology /surgery in Related to JAKY III (vulvar [place] on 09/17/15 for planned intraepithelial neoplasia III) surgical intervention. Continue current pain medicationWith Related to Chronic pain due to upcoming surgery in syrcause, neoplasm medication will likely need to be adjusted temporarily. Pain contract reviewed. Related to Chronic pain due to neoplasm Tobacco, alcohol and drug safety Related to Routine medical exam reviewedTherapeutic life style modications reviewedLabs ordered/reviewed Patient to follow up with BEHAVIORAL HEALTH CARE COORDINATOR as Related to Malignant neoplasm of previouly scheduledOtherwise vulva, unspecified controlled.Continue with activity as [id number]. Patient to follow up wtih Dr. Remy Related to Intrauterine synechiae as previously scheduled.Due to medication issues. Pain medication will be temporarily increased to 10/325mg for 1 week and afterward be reset to 7.5/325mg 3 times a day. If patient is not compliant, we will be talking about rehab at next visit.Pain contract reviewed Pt to follow up with Dr. Chadwick as Related to Squamous cell cancer of previously scheduled and otherwise vulva controlled. Observation of left ear at this time. Related to Sensory hearing loss Avoid loud sounds that can make hearing worse. Continue with physical therapy as Related to Abdominal pain previously done.Docusate sodium given to supplement narcotics. Pt last saw Dr. Muro 5 years ago. Related to Squamous cell cancer of would like to see a new Oncologist for vulva new options and treatment modalities BEHAVIORAL HEALTH CARE COORDINATOR referral set up for complex case Related to Abnormal pap smear of and needing follow up, further eval and the vagina treatment. Pain will be managed here at this time Related to Uterine adhesion and random urine tox screens will be ordered.Continue physical therapy
[2019-06-25 14:18] VITALS: BP 116/70
--- NOTE | 2019-06-25 14:30 | UC ---
Respiratory Complaint HPI - HPI Summary HPI Summary: 39 yo female with cough x 2 1/2 weeks No CP or SOB low grade temp hx bronchitis has used inhalers before - History of Current Complaint Chief Complaint: UCGeneralIllness Stated Complaint: CHEST COGESTION/L EAR PAIN Time Seen by Provider: 06/25/19 14:26 Hx Obtained From: Patient Hx Last Menstrual Period: 06/17/19 Onset/Duration: Gradual Onset, Lasting Weeks Timing: Constant Severity Initially: Mild Severity Currently: Moderate Pain Intensity: 5 Pain Scale Used: Adult Non Verbal Character: Cough: Nonproductive Aggravating Factors: Nothing Alleviating Factors: Nothing Associated Signs And Symptoms: Positive: Fever, Wheezing, Nasal Congestion. 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 on 11/22/13;. APPY and uterine tumor 2013. FIBROID SX. D&C - Family History Known Family History: Positive: Hypertension - Social History Alcohol Use: None Substance Use Type: None Smoking Status (MU): Light Every Day Tobacco Smoker Type: Cigarettes Amount Used/How Often: 1/4 ppd Length of Time of Smoking/Using Tobacco: 20 YRS. Have You Smoked in the Last Year: Yes Household Exposure Type: Cigarettes - Immunization History Most Recent Influenza Vaccination: Not indicated Most Recent Tetanus Shot: Unknown Most Recent Pneumonia Vaccination: Not indicated Review of Systems All Other Systems Reviewed And Are Negative: Yes Constitutional: Positive: Fever, Fatigue Eyes: Positive: Negative ENT: Positive: Sinus Congestion, Sinus Pain/Tenderness Respiratory: Positive: Cough Cardiovascular: Positive: Negative Gastrointestinal: Positive: Negative Genitourinary: Positive: Negative Motor: Positive: Negative Neurovascular: Positive: Negative Musculoskeletal: Positive: Negative Neurological: Positive: Negative Psychological: Positive: Negative Physical Exam Triage Information Reviewed: Yes Appearance: Well-Appearing, No Pain Distress, Well-Nourished Vital Signs: Initial Vital Signs Temp 98.1 F 06/25/19 14:15 Pulse 89 06/25/19 14:15 Resp 22 06/25/19 14:15 BP 116/70 06/25/19 14:15 Pulse Ox 99 06/25/19 14:15 Vital Signs Reviewed: Yes Eyes: Positive: Conjunctiva Clear ENT: Positive: Hearing grossly normal, Pharynx normal, Nasal congestion, TMs normal, Uvula midline. Negative: Nasal drainage, Tonsillar swelling, Tonsillar exudate, Trismus, Muffled voice, Hoarse voice Neck: Positive: Supple, Enlarged Nodes @ - ant cerv Respiratory: Positive: Normal breath sounds, No respiratory distress, No accessory muscle use, Wheezing Cardiovascular: Positive: RRR, No Murmur Musculoskeletal: Positive: ROM Intact, No Edema Neurological: Positive: Alert Psychological Exam: Normal Skin Exam: Normal Re-Evaluation - Re-Evaluation First Eval Re-Evaluation Time: 15:20 Change: Improved - better air movement, decreased cough Respiratory Course/Dx - Differential Dx/Diagnosis Provider Diagnosis: Acute bronchitis with bronchospasm Discharge ED - Sign-Out/Discharge Documenting (check all that apply): Patient Departure All imaging exams completed and their final reports reviewed: No Studies - Discharge Plan Condition: Stable Disposition: HOME Prescriptions: Albuterol 2.5MG/3ML (0.083%)* [Ventolin 2.5 MG/3 ML NEB.KIMBERLY*] 2.5 mg INH QID PRN #1 neb.kimberly PRN Reason: Wheezing Amoxicillin PO (*) [Amoxicillin 875 MG (*)] 875 mg PO BID #14 tab predniSONE 20 mg TAB [Deltasone 20 MG TAB*] 40 mg PO DAILY #8 tab Patient Education Materials: Acute Bronchitis (ED) Referrals: Romaine Wilson MD [Primary Care Provider] - 7 Days (if not better) - Billing Disposition and Condition Condition: STABLE Disposition: Home
[2019-06-25] MEDS ORDERED: Albuterol 2.5 MG/3 ML NEB.SOL* (0.083%) INH ONE (14:37)
[2019-06-25] MEDS ORDERED: Ipratropium 0.5MG/2.5ML NEB* 0.5 MG/2.5 ML NEB.SOLN INH ONE (14:37)
== END 2019-06-25 15:33 | disposition home or self-care (01) ==
LOC: UCCORT 13:22
DX: J20.9 Acute bronchitis, unspecified (principal); R09.89 Other specified symptoms and signs involving the circulatory and respiratory systems; F17.210 Nicotine dependence, cigarettes, uncomplicated; Z88.8 Allergy status to other drugs, medicaments and biological substances
CPT/HCPCS: 99212; G0463; J7512

== ENCOUNTER 2019-07-28 09:52 | Emergency (ER) | payer OTHER ==
[2019-07-28 10:32] VITALS: BP 114/79
--- NOTE | 2019-07-28 10:43 | UC ---
FLU HPI - HPI Summary HPI Summary: Pt presents with c/o body ahces, chills, cough, nasal congestion, chest congestion, X 2 days and has known flu exposure. Pt's son was diagnosed with flu last week. - History of Current Complaint Chief Complaint: UCRespiratory Stated Complaint: FLU LIKE ILLNESS Time Seen by Provider: 07/28/19 10:27 Hx Obtained From: Patient Hx Last Menstrual Period: 07/08/2019 ?: No Onset/Duration: Sudden Onset, Lasting Days, Still Present Severity Currently: Mild Severity Initially: Moderate Pain Intensity: 4 Associated Signs & Symptoms: Positive: Fever, Myalgia, Cough, Sore Throat, Nasal Congestion Related Hx: Possible Flu/Infectious Exposure - Risk Factors Influenza Risk Factors: Negative - Allergy/Home Medications Allergies/Adverse Reactions: Allergies Allergy/AdvReac Type Severity Reaction Status Date / Time all metals Allergy Blisters Uncoded 07/28/19 10:24 Home Medications: Home Medications Albuterol HFA INHALER* [Ventolin HFA Inhaler*] 1 - 2 puff INH Q4H PRN 07/28/19 [ History Confirmed 07/28/19] Benzonatate CAP* [Tessalon 100 MG CAP*] 100 mg PO TID PRN 07/28/19 [History Confirmed 07/28/19] Dm/PE/Acetaminophen/Doxylamine [Vicks Dayquil-Nyquil Cold-Flu] 2 cap PO Q6H PRN 07/28/19 [History Confirmed 07/28/19] Guaifenesin/Pseudoephedrne HCl [Mucinex D ER 600-60 mg Tablet] 1 each PO Q12H # 14 tab.er.12h 07/28/19 [Rx] Ibuprofen TAB* [Advil TAB*] 600 mg PO Q6H PRN 07/28/19 [History Confirmed ] Oseltamivir CAP* [Tamiflu CAP*] 75 mg PO Q12H #10 cap 07/28/19 [Rx] Oxycodone HCl/Acetaminophen [Percocet 7.5-325 mg Tablet] 1 tab PO Q8H PRN MDD 3 tabs 07/28/19 [History Confirmed 07/28/19] predniSONE 10 mg TAB [Deltasone 10 MG TAB*] 30 mg PO DAILY #12 tab 07/28/19 [Rx] PMH/Surg Hx/FS Hx/Imm Hx Previously Healthy: Yes - Surgical History Surgical History: Yes Surgery Procedure, Year, and Place: 17 surgeries for squamous cell carcinoma, last surgery 10/2015 for rectal , vaginal, vulvar; plus surgery vaginal vulvo- rectal 09/27/17 [place];. on 11/22/13;. APPY and uterine tumor 2013. FIBROID SX. D&C - Family History Known Family History: Positive: Hypertension - Social History Occupation: Employed Full-time Lives: With Family Alcohol Use: None Substance Use Type: Prescribed Smoking Status (MU): Light Every Day Tobacco Smoker Type: Cigarettes Amount Used/How Often: / PPD Length of Time of Smoking/Using Tobacco: Since Age 13 Have You Smoked in the Last Year: Yes Household Exposure Type: Cigarettes - Immunization History Most Recent Influenza Vaccination: Not indicated Most Recent Tetanus Shot: Unknown Most Recent Pneumonia Vaccination: Not indicated Vaccination Up to Date: Yes Review of Systems All Other Systems Reviewed And Are Negative: Yes Constitutional: Positive: Fever, Chills, Fatigue Skin: Positive: Negative Eyes: Positive: Negative ENT: Positive: Sore Throat, Ear Ache, Nasal Discharge, Sinus Congestion Respiratory: Positive: Cough Cardiovascular: Positive: Negative Gastrointestinal: Positive: Negative Genitourinary: Positive: Negative Motor: Positive: Negative Neurovascular: Positive: Negative Musculoskeletal: Positive: Myalgia Neurological/Mental Status: Positive: Headache Psychological: Positive: Negative Is Patient Immunocompromised?: No Physical Exam Triage Information Reviewed: Yes Appearance: Ill-Appearing Vital Signs: Initial Vital Signs Temp 98.8 F 07/28/19 10:21 Pulse 80 07/28/19 10:21 Resp 16 07/28/19 10:21 BP 114/79 07/28/19 10:21 Pulse Ox 98 07/28/19 10:21 Vital Signs Reviewed: Yes Eye Exam: Normal ENT: Positive: Nasal congestion, TM bulging Dental Exam: Normal Neck exam: Normal Respiratory Exam: Normal Cardiovascular Exam: Normal Musculoskeletal Exam: Normal Neurological Exam: Normal Psychological Exam: Normal Skin Exam: Normal Flu Course/Dx - Differential Dx/Diagnosis Differential Diagnosis/HQI/PQRI: Influenza, Upper Respiratory Infection Provider Diagnosis: Viral syndrome, Exposure to the flu Discharge ED - Sign-Out/Discharge Documenting (check all that apply): Patient Departure All imaging exams completed and their final reports reviewed: No Studies - Discharge Plan Condition: Stable Disposition: HOME Prescriptions: Guaifenesin/Pseudoephedrne HCl [Mucinex D ER 600-60 mg Tablet] 1 each PO Q12H # 14 tab.er.12h Oseltamivir CAP* [Tamiflu CAP*] 75 mg PO Q12H #10 cap predniSONE 10 mg TAB [Deltasone 10 MG TAB*] 30 mg PO DAILY #12 tab Patient Education Materials: Viral Syndrome (ED) Forms: *Work Release Referrals: Romaine Wilson MD [Primary Care Provider] - If Needed Additional Instructions: Please follow up with your PCP as needed. - Billing Disposition and Condition Condition: STABLE Disposition: Home
== END 2019-07-28 10:51 | disposition home or self-care (01) ==
LOC: UCCORT 09:52
DX: B34.9 Viral infection, unspecified (principal); R09.81 Nasal congestion; R51 Headache; R05 Cough; J02.9 Acute pharyngitis, unspecified; R09.89 Other specified symptoms and signs involving the circulatory and respiratory systems; R53.83 Other fatigue; M79.10 Myalgia, unspecified site; F17.210 Nicotine dependence, cigarettes, uncomplicated; Z91.09 Other allergy status, other than to drugs and biological substances
CPT/HCPCS: 99212; G0463

== ENCOUNTER 2019-07-31 08:57 | Emergency (ER) | payer OTHER ==
[2019-07-31 09:23] VITALS: BP 112/69
--- NOTE | 2019-07-31 10:31 | UC ---
Respiratory Complaint HPI - HPI Summary HPI Summary: cough x 5 days cough is productive with yellow sputum worse with deep breathing, better with rest was seen 4 days ago with the dx of flu, is on Prednisone and albuterol , + nasal congestion, pnd, fever, chills body aches - History of Current Complaint Chief Complaint: UCRespiratory Stated Complaint: RE-CHECK COUGH, FEVER Time Seen by Provider: 07/31/19 09:41 Hx Obtained From: Patient Hx Last Menstrual Period: 07/08/2019 ?: No Onset/Duration: Gradual Onset, Lasting Days - 4 Timing: Constant Severity Initially: Moderate Severity Currently: Moderate Pain Intensity: 4 Character: Cough: Productive Aggravating Factors: Exertion, Deep Breaths Alleviating Factors: Nothing Associated Signs And Symptoms: Positive: Fever, Chills, Wheezing, URI, Nasal Congestion. Negative: Dyspnea - Allergies/Home Medications Allergies/Adverse Reactions: Allergies Allergy/AdvReac Type Severity Reaction Status Date / Time all metals Allergy Blisters Uncoded 07/31/19 09:23 Home Medications: Home Medications Albuterol HFA INHALER* [Ventolin HFA Inhaler*] 1 - 2 puff INH Q4H PRN 07/28/19 [ History Confirmed 07/31/19] Benzonatate CAP* [Tessalon 100 MG CAP*] 100 mg PO TID PRN 07/28/19 [History Confirmed 07/31/19] Dm/PE/Acetaminophen/Doxylamine [Vicks Dayquil-Nyquil Cold-Flu] 2 cap PO Q6H PRN 07/28/19 [History Confirmed 07/31/19] Guaifenesin/Pseudoephedrne HCl [Mucinex D ER 600-60 mg Tablet] 1 each PO Q12H # 14 tab.er.12h 07/28/19 [Rx Confirmed 07/31/19] Ibuprofen TAB* [Advil TAB*] 600 mg PO Q6H PRN 07/28/19 [History Confirmed ] Oseltamivir CAP* [Tamiflu CAP*] 75 mg PO Q12H #10 cap 07/28/19 [Rx Confirmed 09/15] Oxycodone HCl/Acetaminophen [Percocet 7.5-325 mg Tablet] 1 tab PO Q8H PRN MDD 3 tabs 07/28/19 [History Confirmed 07/31/19] predniSONE 10 mg TAB [Deltasone 10 MG TAB*] 30 mg PO DAILY #12 tab 07/28/19 [Rx Confirmed 07/31/19] PMH/Surg Hx/FS Hx/Imm Hx Respiratory History: Asthma - Surgical History Surgical History: Yes Surgery Procedure, Year, and Place: 17 surgeries for squamous cell carcinoma, last surgery 10/2015 for rectal , vaginal, vulvar; plus surgery vaginal vulvo- rectal 09/27/17 [place];. on 11/22/13;. APPY and uterine tumor 2013. FIBROID SX. D&C - Family History Known Family History: Positive: Hypertension - Social History Alcohol Use: None Substance Use Type: None Smoking Status (MU): Light Every Day Tobacco Smoker Type: Cigarettes Amount Used/How Often: 1/4 PPD Length of Time of Smoking/Using Tobacco: Since Age 13 Have You Smoked in the Last Year: Yes Household Exposure Type: Cigarettes - Immunization History Most Recent Influenza Vaccination: Not indicated Most Recent Tetanus Shot: Unknown Most Recent Pneumonia Vaccination: Not indicated Vaccination Up to Date: Yes Review of Systems All Other Systems Reviewed And Are Negative: Yes Constitutional: Positive: Fever, Chills, Fatigue Skin: Positive: Negative Eyes: Positive: Negative ENT: Positive: Sore Throat, Nasal Discharge Respiratory: Positive: Cough Is Patient Immunocompromised?: No Physical Exam Triage Information Reviewed: Yes Appearance: Well-Appearing, No Pain Distress, Well-Nourished Vital Signs: Initial Vital Signs Temp 97.7 F 07/31/19 09:20 Pulse 85 07/31/19 09:20 Resp 22 07/31/19 09:20 BP 112/69 07/31/19 09:20 Pulse Ox 97 07/31/19 09:20 Vital Signs Reviewed: Yes Eye Exam: Normal Eyes: Positive: Conjunctiva Clear ENT: Positive: Normal ENT inspection, Hearing grossly normal, Pharynx normal, Nasal congestion, Nasal drainage, TMs normal Neck: Positive: Supple, Nontender, No Lymphadenopathy Respiratory: Positive: Chest non-tender, Lungs clear, Normal breath sounds Cardiovascular: Positive: RRR, No Murmur, Pulses Normal Skin Exam: Normal Respiratory Course/Dx - Differential Dx/Diagnosis Provider Diagnosis: Bronchitis Discharge ED - Sign-Out/Discharge Documenting (check all that apply): Patient Departure All imaging exams completed and their final reports reviewed: No Studies - Discharge Plan Condition: Stable Disposition: HOME Patient Education Materials: Acute Bronchitis (ED) Forms: *Work Release Referrals: Romaine Wilson MD [Primary Care Provider] - If Needed - Billing Disposition and Condition Condition: STABLE Disposition: Home
== END 2019-07-31 10:32 | disposition home or self-care (01) ==
LOC: UCCORT 08:57
DX: J45.909 Unspecified asthma, uncomplicated (principal); R09.81 Nasal congestion; F17.210 Nicotine dependence, cigarettes, uncomplicated; Z85.048 Personal history of other malignant neoplasm of rectum, rectosigmoid junction, and anus; Z85.44 Personal history of malignant neoplasm of other female genital organs; Z91.09 Other allergy status, other than to drugs and biological substances; Z79.52 Long term (current) use of systemic steroids
CPT/HCPCS: 71046; 99211; G0463